=== PATIENT | male | born 1965 | race Caucasian/White ===

== ENCOUNTER 2017-11-15 08:29 | Outpatient (CLI) | payer BC | END 2017-11-15 08:30 | disposition home or self-care (01) | LOC: BICCT 08:29 | PROVIDERS: ATTEND Family Medicine | DX: G44.52 New daily persistent headache (NDPH) (principal); R53.1 Weakness | CPT/HCPCS: 70450 ==

== ENCOUNTER 2018-07-19 07:36 | Outpatient (CLI) | payer BC ==
--- NOTE | 2018-07-19 08:20 | CT ---
FCT pulmonary lung scan, noncontrast CLINICAL HISTORY: Nicotine dependency FINDINGS: No suspicious pulmonary nodule or mass. No consolidation or effusion. Minimal linear densities may re late to volume loss and/or mild areas of scar. Soft tissues, regionally, are limited in assessment by noncontrast technique. There are a few borderline-sized, nonspecific mediastinal lymph nodes. There are osseous degenerative changes. IMPRESSION: Lung RADS category 1, there are no suspicious lung nodules. Continued annual screening with low-dose CT in 12 months is recommended, per standard protocol.
== END 2018-07-19 07:37 | disposition home or self-care (01) ==
LOC: CT 07:36
PROVIDERS: ATTEND Family Medicine
DX: Z12.2 Encounter for screening for malignant neoplasm of respiratory organs (principal)
CPT/HCPCS: G0297

== ENCOUNTER 2018-10-10 08:15 | Outpatient (CLI) | payer OTHER ==
--- NOTE | 2018-10-10 09:22 | MRI ---
MRI Cervical Spine WO Con History: R 20.2 paresthesia and left hand Comparison: Radiographs August 30, 2018 Findings: Cerebral tonsils terminate at the level of the foramen magnum. The cord signal is normal. No marrow infiltrative process. Paraspinal musculature is normal. No adenopathy. Levels are as follows: C2/C3: Normal disc hydration. Low-grade uncinate process hypertrophy. No neural foraminal or spinal c anal narrowing. C3/C4: Normal disc hydration. Mild uncinate process hypertrophy. No neural foraminal or spinal canal narrowing. C4/C5: Mild disc desiccation. Low-grade circumferential disc bulge. Minimal effacement of the ventral CSF space but the spinal canal measuring 1 cm. Mild left neural foraminal narrowing. C5/C6: Mild degenerative disc space height loss. Mild uncinate process hypertrophy along with the lef t. Foraminal posterior disc osteophyte complex. Moderate left and mild right neural foraminal narrowing. C6/C7: Normal disc hydration. Mild ligamentum flavum hypertrophy. Mild facet arthropathy on the left. No neural foraminal or spinal canal narrowing. C7/T1: Normal disc hydration. Mild left and right facet arthropathy. No neural foraminal or spinal ca nal narrowing. Impression: Low-grade spondylosis as described.
== END 2018-10-10 08:16 | disposition home or self-care (01) ==
LOC: BICMRI 08:15
PROVIDERS: ATTEND Family Medicine
DX: R20.2 Paresthesia of skin (principal); M47.812 Spondylosis without myelopathy or radiculopathy, cervical region
CPT/HCPCS: 72141

== ENCOUNTER 2019-10-12 07:15 | Outpatient (CLI) | payer BC ==
--- NOTE | 2019-10-12 08:10 | CT ---
Exam: Noncontrast chest CT; CT lung scan low dose HISTORY:Nicotine dependence. Current smoker. History of 1 pack per day for 39 years. COMPARISON: 07/19/2018 TECHNIQUE: Low-dose screening lung CT is performed utilizing institutional protocol FINDINGS: Lung screening specific (LUNG-RADS): Category 1. Negative. No suspicious masses or nodules. Potential significant incidentals (lung RADS category S): None Pulmonary incidentals:Minimal areas of septal thickening, unchanged. Other incidentals: Subcentimeter hypodensities in the liver, too small to characterize. IMPRESSION: 1. Lung RADS 1. Negative exam. No suspicious nodules. 2. Lung Rask category S: Negative. No new or unknown potential significant incidental findings requir ing urgent additional evaluation 3. Other incidentals as above. Recommendation: Continued routine annual low-dose lung screening CT. Follow-up in one year.
== END 2019-10-12 07:16 | disposition home or self-care (01) ==
LOC: BICCT 07:15
PROVIDERS: ATTEND Family Medicine
DX: Z12.2 Encounter for screening for malignant neoplasm of respiratory organs (principal); F17.210 Nicotine dependence, cigarettes, uncomplicated; R93.2 Abnormal findings on diagnostic imaging of liver and biliary tract; J98.4 Other disorders of lung
CPT/HCPCS: G0297

== ENCOUNTER 2020-11-21 08:21 | Outpatient (CLI) | payer BC | END 2020-11-21 08:22 | disposition home or self-care (01) | LOC: BICCT 08:21 | PROVIDERS: ATTEND Family Medicine | DX: Z12.2 Encounter for screening for malignant neoplasm of respiratory organs (principal); F17.210 Nicotine dependence, cigarettes, uncomplicated | CPT/HCPCS: 71271 ==

== ENCOUNTER 2021-11-24 07:21 | Outpatient (CLI) | payer BC | END 2021-11-24 07:22 | disposition home or self-care (01) | LOC: BICCT 07:21 | PROVIDERS: ATTEND Family Medicine | DX: Z12.2 Encounter for screening for malignant neoplasm of respiratory organs (principal); F17.210 Nicotine dependence, cigarettes, uncomplicated; I25.10 Atherosclerotic heart disease of native coronary artery without angina pectoris | CPT/HCPCS: 71271 ==

== ENCOUNTER 2023-04-16 07:36 | Outpatient (CLI) | payer BC | END 2023-04-16 07:37 | disposition home or self-care (01) | LOC: BICCT 07:36 | PROVIDERS: ATTEND Family Medicine | DX: Z12.2 Encounter for screening for malignant neoplasm of respiratory organs (principal); F17.210 Nicotine dependence, cigarettes, uncomplicated; I25.10 Atherosclerotic heart disease of native coronary artery without angina pectoris; I25.84 Coronary atherosclerosis due to calcified coronary lesion | CPT/HCPCS: 71271 ==

== ENCOUNTER 2023-06-30 11:36 | Outpatient (CLI) | payer BC ==
[2023-06-30 13:04] LABS: #Eosinphils 0.2 10x3/uL (0.0-0.5); #Monocytes 0.5 10x3/uL (0.0-1.1); #Neutrophils 4.5 10x3/uL (1.5-8.4); %Basophils 0.4 % (0.0-2.0); %Eosinophils 2.6 % (0.0-6.0); %Lymphocytes 29.3 % (18.0-47.0); %Monocytes 6.7 % (0.0-10.0); %Neutrophils 60.9 % (40.0-75.0); Hematocrit 43.4 % (38.8-50.0); Hemoglobin 15.4 g/dL (13.5-17.5); Mean Corpuscular HGB CONC 35.5 g/dL (32.0-36.0); Mean Corpuscular Hemoglobin 32.4 pg (27.0-33.0); Mean Corpuscular Volume 91.2 fl (81.2-95.1); Mean Platelet Volume 10.1 fl (7.4-10.4); Platelet Count 164 10x3/uL (150-450); RBC Distribution Width 12.1 % (11.5-14.5); Red Blood Cell (RBC) Count 4.76 10x6/uL (4.32-5.72); White Blood Cell (WBC) Count 7.4 10x3/uL (3.5-10.5)
[2023-06-30 13:22] LABS: Anion Gap 11 mmol/L (10-20); BUN (Urea Nitrogen) 13 mg/dL (8.4-25.7); Calc. Creatinine Clearance 0 mL/min (70-130); Calcium 9.1 mg/dL (7.8-10.44); Carbon Dioxide 28 mmol/L (22-29); Chloride 103 mmol/L (98-107); Estimated GFR 100; Glucose 96 mg/dL (70-105); Potassium 4.3 mmol/L (3.5-5.1); Sodium 138 mmol/L (136-145)
== END 2023-06-30 11:37 | disposition home or self-care (01) ==
LOC: LABBT 11:36
PROVIDERS: ATTEND Surgery
DX: Z01.818 Encounter for other preprocedural examination (principal); K40.90 Unilateral inguinal hernia, without obstruction or gangrene, not specified as recurrent
CPT/HCPCS: 80048; 85025; 93005; 93010

== ENCOUNTER 2023-07-08 06:44 | Day surgery (SDC) | payer BC ==
[2023-07-06 11:28] VITALS: BMI 24.4
[2023-07-08] MEDS ORDERED: fentaNYL PF 100 MCG/2 ML SYRINGE ONE (08:00)
[2023-07-08] MEDS ORDERED: PROPOFOL 20 ML ONE (08:00)
[2023-07-08] MEDS ORDERED: Midazolam HCl 2 mg/2 ml Vial ONE (08:01)
[2023-07-08] MEDS ORDERED: Lidocaine 1% PF 5 ML VIAL ONE (08:01)
[2023-07-08] MEDS ORDERED: Dexamethasone 4 mg/ml Vial ONE (08:01)
[2023-07-08] MEDS ORDERED: Ondansetron PF 4 MG/2 ML Vial ONE (08:01)
[2023-07-08] MEDS ORDERED: SUGAMMADEX SODIUM 200 MG/2 ML VIAL ONE (08:01)
[2023-07-08] MEDS ORDERED: Rocuronium Bromide 10 MG/ML (10ML VIAL) ONE (08:01)
[2023-07-08] MEDS ORDERED: EPINEPHrine 1 MG/ML VIAL ONE (08:11)
[2023-07-08] MEDS ORDERED: Bupivacaine 0.25% HCL 30 ML VIAL ONE (08:11)
[2023-07-08] MEDS ORDERED: CEFAZOLIN 2 GM VIAL ONE (09:15)
[2023-07-08] MEDS ORDERED: Sodium Chloride 0.9% 0 ML ONE (09:16)
[2023-07-08] MEDS ORDERED: LevoFLOXacin D5W 500 mg (100 mL) BAG ONE (09:22)
[2023-07-08] MEDS ORDERED: HYDROmorphone 0.5 MG/0.5 ML SYRINGE ONE (09:28)
[2023-07-08] MEDS ORDERED: Glycopyrrolate 0.2 MG/ML 5 ML SYRINGE ONE (09:59)
[2023-07-08] MEDS ORDERED: Meperidine HCl/PF 25 MG (1 mL) VIAL ONE (10:58)
[2023-07-08] MEDS ORDERED: fentaNYL 50 mcg/mL 1 mL Vial ONE (11:42)
[2023-07-08] MEDS ORDERED: HYDROcodone/Acetaminophen 5/325 mg Tablet ONE (12:15)
== END 2023-07-08 13:00 | disposition home or self-care (01) ==
LOC: SDC 06:44
PROVIDERS: ATTEND Surgery
PROC: 0YU64JZ Supplement Left Inguinal Region with Synthetic Substitute, Percutaneous Endoscopic Approach (ICD-10-PCS; principal; 2023-07-08)
DX: K40.90 Unilateral inguinal hernia, without obstruction or gangrene, not specified as recurrent (principal); I10 Essential (primary) hypertension; Z79.899 Other long term (current) drug therapy; F17.210 Nicotine dependence, cigarettes, uncomplicated; Z88.0 Allergy status to penicillin; Z88.8 Allergy status to other drugs, medicaments and biological substances
CPT/HCPCS: A4314; C1781; J0171; J0665; J1100; J1170; J1956; J2175; J2250; J2405; J2704; J3010; J3490

== ENCOUNTER 2024-04-18 07:27 | Outpatient (CLI) | payer BC | END 2024-04-18 07:28 | disposition home or self-care (01) | LOC: BICCT 07:27 | PROVIDERS: ATTEND Family Medicine | DX: Z12.2 Encounter for screening for malignant neoplasm of respiratory organs (principal); F17.210 Nicotine dependence, cigarettes, uncomplicated; K76.89 Other specified diseases of liver | CPT/HCPCS: 71271 ==